=== PATIENT | female | born 1980 | race Two or more races ===

== ENCOUNTER 2024-11-26 08:01 | Emergency (ER) | payer OTHER, SELFPAY ==
[2024-11-26 08:03] VITALS: BMI 32.9
[2024-11-26 08:10] VITALS: BP 130/80; PULSE 77; RESP 18; TEMP 36.6; O2SAT 100
--- NOTE | 2024-11-26 08:18 | XR_ITS ---
Examination: PA lateral chest 2 views TECHNIQUE: Upright PA lateral chest 2 views Exam date and time: 11/18/2024 at 0837 hours INDICATIONS: Chest pain shortness of breath today FINDINGS: Normal heart size Minimal increased markings at the lung bases No pulmonary edema Intact osseous structures IMPRESSION: Suspicious for early bibasilar pneumonia, clinical correlation advised
--- NOTE | 2024-11-26 08:18 | EKG_ITS ---
[facility] Test Date: 2024-11-26 Pat Name: PARTH PETERSON Department: Room: - Gender: Female In [employer]: : 1980 Requested By: Elia Camacho (CARSON) Order Number: [id number] Reading MD: Elia Camacho ([employer]PA[employer]ER) Measurements Intervals [place] Rate: 58 P: 46 MD: 139 QRS: 61 QRSD: 78 T: 45 QT: 420 QTc: 413 Interpretive Statements SINUS BRADYCARDIA WITH SINUS ARRHYTHMIA No previous ECG available for comparison /store/S0/[id number].pdf
[2024-11-26 08:36] LABS: Basophils # (Auto) 0.1 Thou/mm3 (0.0-0.2); Basophils % (Auto) 1 % (0-2.5); Eosinophils # (Auto) 0.2 Thou/mm3 (0.0-0.5); Eosinophils % (Auto) 2 % (0-10); Hematocrit 38.5 % (36.0-46.0); Hemoglobin 12.6 g/dL (12.0-16.0); Immature Granulocytes % (Auto) 1 % (0-0); Lymphocytes # (Auto) 2.3 Thou/mm3 (1.0-4.8); Lymphocytes % (Auto) 21 % (10-50); Mean Corpuscular HGB Conc 32.7 g/dl (31.0-37.0); Mean Corpuscular Hemoglobin 29.5 pg (25.0-35.0); Mean Corpuscular Volume 90 fL (80-100); Monocytes # (Auto) 0.6 Thou/mm3 (0.0-0.8); Monocytes % (Auto) 6 % (0-12); Neutrophils # (Auto) 7.6 Thou/mm3 (1.8-7.7); Neutrophils % (Auto) 70 % (37-80); Nucleated Red Blood Cell % 0 /100 WBC (0); Platelet Count 270 Thou/mm3 (140-440); RDW Standard Deviation 43.3 fL (36.4-46.3); Red Blood Count 4.27 Miln/mm3 (4.00-5.20); White Blood Count 10.9 Thou/mm3 (3.6-11.0)
[2024-11-26 08:56] LABS: Alanine Aminotransferase 13 U/L (10-49); Albumin, Serum 4.5 gm/dL (3.5-5.0); Albumin/Globulin Ratio 1.6 (1.2-2.2); Alkaline Phosphatase 94 U/L (46-116); Anion Gap 8 (7-16); Aspartate Amino Transferase 13 U/L (0-34); BUN/Creatinine Ratio 17 Ratio (12-20); Bilirubin,Total 0.5 mg/dL (0.3-1.2); Blood Urea Nitrogen 12 mg/dL (9-23); Carbon Dioxide 24.8 mMol/L (20.0-31.0); Chloride 105 mMol/L (98-107); Creatinine (Component) 0.7 mg/dL (0.6-1.3); Estimated Creatinine Clearance 102.6 mL/min (>60); Globulin 2.8 gm/dL (2.3-3.5); Glucose 111 mg/dL (74-106); Osmolality,Calculated 276 (275-295); Potassium 3.8 mMol/L (3.4-5.1); Sodium 138 mMol/L (136-145); Total Protein 7.3 gm/dL (5.7-8.2); Troponin I < 0.020 ng/mL (0.0-0.045); eGFR > 60 See Note
[2024-11-26 09:09] LABS: HCG,Qualitative Serum Negative
--- NOTE | 2024-11-26 10:47 | PD.EDSOB ---
ED SOB =RME/HPI General Chief Complaint: Shortness of Breath/Dyspnea Stated Complaint: ASTHMA ATTACK/ LUNGS HURT/ SOB Time Seen by Provider: 11/26/24 08:50 Arrival date/time: 11/26/24 08:01 44-year-old female presents the emergency department complaints of asthma attack patient reports cough and congestion as well there are no other associated symptoms or aggravating factors no other modifying factors, patient denies taking medication before coming to ER today Limitations: no limitations Related Data Home Medications ?Medication ?Instructions ?Recorded ?Confirmed sertraline 50 mg tablet (Zoloft) 50 mg PO QDAY 11/15/23 04/24/24 norethindrone 1.5 mg-ethinyl 1 tab PO QDAY 04/24/24 04/24/24 estradiol 30 mcg(21)/iron 75 mg(7) tablet (Blisovi Fe 1.5 ()) Previous Rx's ?Medication ?Instructions ?Recorded albuterol sulfate 90 mcg/actuation 2 puff inhalation Q6H PRN 11/26/24 aerosol inhaler (Ventolin HFA) shortness of breath or wheezing #8.5 grams azithromycin 500 mg tablet See Rx Instructions PO .COMPLEX #6 11/26/24 tabs ibuprofen 600 mg tablet 600 mg PO Q6H #30 tabs 11/26/24 prednisone 10 mg tablet 30 mg (3 x 10 mg) PO BID 3 days 11/26/24 #18 tabs Allergies Allergy/AdvReac Type Severity Reaction Status Date / Time codeine Allergy Intermediate Rash Verified 11/26/24 08:01 epinephrine Allergy Intermediate Palpitation Verified 11/26/24 08:01 s Review of Systems Review of Systems Systems Reviewed: All systems reviewed, normal except as documented Constitutional Constitutional: Reports system reviewed and no additional complaints, except as documented, Denies fever(s) and Denies headache(s) Eyes Eyes: Reports system reviewed and no additional complaints, except as documented and Denies blurry vision ENT Ears, Nose, Mouth, and Throat: Reports system reviewed and no additional complaints, except as documented, Denies headache(s), Denies nasal congestion and Denies nasal discharge Cardiovascular Cardiovascular: Reports system reviewed and no additional complaints, except as documented, Denies chest pain and Reports dyspnea Respiratory Respiratory: Reports system reviewed and no additional complaints, except as documented, Reports chest congestion, Reports cough, Reports dyspnea and Reports wheezing Gastrointestinal Gastrointestinal: Reports system reviewed and no additional complaints, except as documented and Denies abdominal pain Integumentary/Breasts Skin/Breast: Reports system reviewed and no additional complaints, except as documented and Denies rash Neurologic Neurologic: Reports system reviewed and no additional complaints, except as documented, Reports as per HPI and Denies headache(s) Allergic/Immunologic Allergic/Immunologic: Reports wheezing Past Medical History Past Medical History NEUROLOGIC: Negative Neurological Disorders or Seizures CARDIAC: Negative Cardiac Disorders or Congestive Heart Failure RESPIRATORY: Positive Asthma; Negative Chronic Obstructive Pulmonary Disease (COPD) GASTROINTESTINAL: Negative Gastrointestinal Disorders GENITOURINARY: Negative Genitourinary Disorders or Renal Disease MUSCULOSKELETAL: Negative Musculoskeletal Disorders ENDOCRINE: Negative Endocrine Disorders, Diabetes Mellitus Type 1 or Diabetes Mellitus Type 2 HEMATOLOGIC: Negative Blood Disorders or Sickle Cell Disease PSYCHO/SOCIAL: Positive Anxiety OTHER HISTORY: Positive Mumps; Negative Autoimmune Disease, Blood Transfusions, Anesthesia Reactions, Chicken Pox, Measles or Cancer Social History SMOKING STATUS: Never smoker SUBSTANCE USE: does not use ED Exam General Limitations: Present no limitations General appearance: Present alert and in no apparent distress Head Head exam: Present atraumatic, normocephalic and normal inspection Eye Eye exam: Present normal appearance, PERRL and EOMI; Absent conjunctival injection ENT ENT exam: Present normal exam, normal oropharynx and mucous membranes moist Neck Neck exam: Present normal inspection, full ROM and trachea midline Chest Chest inspection: Present normal inspection and symmetric chest wall rise Respiratory Respiratory exam: Present wheezes; Absent respiratory distress, stridor, accessory muscle use or prolonged expiratory phase Cardiovascular Cardiovascular exam: Present regular rate, normal rhythm and normal heart sounds Abdominal Exam Abdominal exam: Present soft and normal bowel sounds; Absent distention, tenderness, guarding, rebound or rigidity Extremities Exam Extremities exam: Present normal inspection and full ROM Back Exam Back exam: Present normal inspection and full ROM Neurological Exam Neurological exam: Present alert, oriented X3 and CN II-XII intact Psychiatric Psychiatric exam: Present normal affect and normal mood Skin Skin exam: Present warm, dry, intact and normal color Course Quality Measures none Orders Category Date Time Status Bedside Influenza A&B Antigen Test NOW Care 11/26/24 08:20 Completed EKG (ED ONLY) *Do not use* NOW Care 11/26/24 08:18 Completed EKG (ED Only) Stat Exams 11/26/24 08:18 Draft XR chest 2V Stat Exams 11/26/24 08:18 Completed CBC Stat Lab 11/26/24 08:30 Completed Comprehensive Metabolic Panel Stat Lab 11/26/24 08:30 Completed HCG,Qualitative Serum Stat Lab 11/26/24 08:30 Completed Troponin I Stat Lab 11/26/24 08:30 Completed Vital Signs Vital signs: Vital Signs Temperature 97.9 F 11/26/24 08:10 Pulse Rate 77 11/26/24 08:10 Respiratory Rate 18 11/26/24 08:10 Blood Pressure 130/80 11/26/24 08:10 Pulse Oximetry (%) 100 11/26/24 08:10 Oxygen Delivery Method Room Air 11/26/24 08:10 O2 saturation 100% room air within normal limits Procedures -ED EKG Interpretation #1: Date of EK11/26/24 Time of EK:27 Rate: 58 Interpretation: Interpreted by me EKG Impression: No acute ST-T changes, No ectopy, Sinus arrhythmia, No ischemic changes, Normal QRS and Normal intervals Shortness of Breath / Dyspnea MDM Narrative MDM Narrative:: 44-year-old female presents the emergency department complaints of asthma attack patient reports cough and congestion as well there are no other associated symptoms or aggravating factors no other modifying factors, patient denies taking medication before coming to ER today On exam patient well-appearing patient does not appear ill or toxic in no acute distress Chest x-ray obtained consistent with pneumonia Lab work obtained no acute emergent findings noted EKG obtained no acute emergent findings noted Patient discharged home in no distress to follow-up with primary care doctor in the next 24 to 48 hours and for any worsening symptoms to return to the ER immediately Patient data External records reviewed:: [facility] previous records Clinical information provided by:: patient Social determinants that could affect healthcare access:: none Patient has the following chronic illnesses:: Asthma How is presenting disease/condition affected by chronic disease/condition?: exacerbated by Evaluation data The following diagnostics were reviewed and interpreted by me:: lab results, radiology exam(s) and EKG tracing(s) Lab and/or radiology exams considered but not ordered:: Labs, radiology, EKG obtained Interpretation Summary: Reviewed by me Medications / Prescriptions Medications or Prescriptions considered but not ordered:: Given Medication administrations:: Given Consultations Consultation(s) initiated? (list below): No Diagnosis Shortness of Breath Differential Diagnosis: acute exacerbation of chronic obstructive airways disease, congestive heart failure, community acquired pneumonia, asthma with exacerbation and pulmonary embolism Most likely diagnosis given after review of the tests above:: Asthma exacerbation, pneumonia Admission Indicated Admission indicated?: not indicated Admission Request Was there a request for admission?: No Disposition Plan Disposition Plan: Discharge Discharge Attestation Discharge Attestation: The patient and all family members were given an opportunity to ask questions and understood the discharge instructions. Discharge instructions specifically effects, indications for sooner follow up or return to the emergency department, and the expected course of current diagnosis. Patient condition: Stable Discharge Plan Plan Patient Disposition: HOME (Self Care) Disposition Comment: Stable Patient condition on transfer: Stable Prescriptions/Referrals Prescriptions/Med Rec: New prednisone 10 mg tablet 30 mg PO BID 3 Days Qty: 18 0RF ibuprofen 600 mg tablet 600 mg PO Q6H Qty: 30 0RF albuterol sulfate [Ventolin HFA] 90 mcg/actuation HFA aerosol inhaler 2 puff inhalation Q6H PRN (Reason: shortness of breath or wheezing) Qty: 8.5 0RF azithromycin 500 mg tablet See Rx Instructions .ROUTE .COMPLEX Qty: 6 0RF Rx Instructions: take 500 mg today (day 1), then 250 mg for 4 days (days 2-5) No Action sertraline [Zoloft] 50 mg tablet 50 mg PO QDAY norethindrone-e.estradiol-iron [Blisovi Fe 1.5/30 (28)] 1.5 mg-30 mcg (21)/75 mg (7) Tablet 1 tab PO QDAY Referrals: Sofie Alvarez FNP [Primary Care Provider] - 11/27/24 Problem List Clinical Impression: Pneumonia Patient/Caregiver Discharge Instructions Education Materials: ED Pneumonia (Adult) Additional Instructions: Please follow up with your primary care doctor in the next 24-48hrs for any worsening symptoms return here immediately Print Language: Syrian Stand Alone Forms: Hanna Award Info., Work/School Release, Patient Portal Info Letter RUDY/PRIYANKA Supervising Physician RUDY/PRIYANKA Supervising Physician: Dr. Huynh
== END 2024-11-26 11:57 | disposition home or self-care (01) ==
PROVIDERS: Nurse Practitioner Primary Care; Emergency Provider Emergency Medicine; PCP Registered Nurse Community Health
DX: J18.9 Pneumonia, unspecified organism (principal); I49.8 Other specified cardiac arrhythmias; R00.1 Bradycardia, unspecified
CPT/HCPCS: 36415; 71046; 80053; 84484; 84703; 85025; 87400; 93005; 99283

== ENCOUNTER → 2024-12-09 | Outpatient (CLI) | payer OTHER, SELFPAY ==
--- NOTE | 2024-12-09 09:42 | XR_ITS ---
Examination: PA lateral chest 2 views TECHNIQUE: Upright PA lateral chest 2 views Exam date and time: December 09, 2024 1007 hours COMPARISON: November 18, 2024 INDICATIONS: History pneumonia 2 weeks ago bibasilar FINDINGS: Pneumonia at the lung bases has cleared Normal heart size Moderate osteopenia IMPRESSION: Bibasilar pneumonia has cleared
--- NOTE | 2024-12-09 10:03 | XR_ITS ---
Examination: Ultrasound soft tissue neck TECHNIQUE: Grayscale sonographic images soft tissue neck Exam date and time: December 09, 2024 1037 hours INDICATIONS: Palpable lumps lower left neck note is beginning 3 weeks ago FINDINGS: 7 x 3 x 8 mm lymph node at the area concern IMPRESSION: 7 x 3 x 8 mm lymph node at the area concern, recommend 3 month follow-up
== END | disposition home or self-care (01) ==
PROVIDERS: PCP Registered Nurse Community Health; Referring Provider Registered Nurse Community Health; Visit Provider Registered Nurse Community Health
DX: J18.9 Pneumonia, unspecified organism (principal); R22.1 Localized swelling, mass and lump, neck
CPT/HCPCS: 71046; 76536

== ENCOUNTER 2024-12-10 02:43 | Emergency (ER) | payer OTHER, SELFPAY ==
[2024-12-10 02:43] VITALS: BMI 32.9
[2024-12-10 02:54] VITALS: BP 130/82; PULSE 103; RESP 19; TEMP 36.4; O2SAT 100
--- NOTE | 2024-12-10 02:58 | XR_ITS ---
Examination: PA lateral chest 2 views Technique: AP lateral chest 2 view Exam date and time: December 10, 2024 0307 hrs. Comparison December 09, 2024 Indications: Chest pain beginning one week ago. Findings: Normal heart size No pneumonia or pulmonary edema Mild osteopenia Impression: No pneumonia or pulmonary edema
--- NOTE | 2024-12-10 03:00 | PD.EDRME ---
Rapid Medical Screening Exam RME Arrival date/time: 12/10/24 02:43 44-year-old female presents emergency department complaining of shortness of breath, chest pressure, and shakiness. Chief Complaint: Shortness of Breath/Dyspnea Time Seen by Provider: 12/10/24 02:49 Vital signs: Vital Signs Temperature 97.6 F 12/10/24 02:54 Pulse Rate 103 H 12/10/24 02:54 Respiratory Rate 19 12/10/24 02:54 Blood Pressure 130/82 12/10/24 02:54 Pulse Oximetry (%) 100 12/10/24 02:54 Oxygen Delivery Method Room Air 12/10/24 02:54 Vital signs reviewed by provider: Yes
[2024-12-10 03:19] LABS: Basophils # (Auto) 0.1 Thou/mm3 (0.0-0.2); Basophils % (Auto) 0 % (0-2.5); Eosinophils # (Auto) 0.3 Thou/mm3 (0.0-0.5); Eosinophils % (Auto) 2 % (0-10); Immature Granulocytes % (Auto) 1 % (0-0); Immature Granulocytes Auto 0.14 Thou/mm3 (0.00-0.00); Lymphocytes # (Auto) 4.8 Thou/mm3 (1.0-4.8); Lymphocytes % (Auto) 29 % (10-50); Mean Corpuscular HGB Conc 33.3 g/dl (31.0-37.0); Mean Corpuscular Hemoglobin 29.6 pg (25.0-35.0); Mean Corpuscular Volume 89 fL (80-100); Monocytes % (Auto) 6 % (0-12); Neutrophils # (Auto) 10.4 Thou/mm3 (1.8-7.7); Neutrophils % (Auto) 63 % (37-80); Nucleated Red Blood Cell % 0 /100 WBC (0); Platelet Count 260 Thou/mm3 (140-440); RDW Standard Deviation 43.4 fL (36.4-46.3); Red Blood Count 4.39 Miln/mm3 (4.00-5.20); White Blood Count 16.7 Thou/mm3 (3.6-11.0)
[2024-12-10] MEDS: DIAZEPAM 5 MG TABLET PO (03:19)
[2024-12-10 03:32] LABS: B-Type Natriuretic Peptide < 20 pg/mL (0-100)
--- NOTE | 2024-12-10 03:33 | PD.EDSOB ---
ED SOB =RME/HPI General Chief Complaint: Shortness of Breath/Dyspnea Stated Complaint: DIFFICULTY BREATHING, SHAKY Time Seen by Provider: 12/10/24 02:49 Arrival date/time: 12/10/24 02:43 RME / HPI RME / HPI Narrative: 12/10/24 02:43 44-year-old female presents emergency department complaining of shortness of breath, chest pressure, and shakiness. Dr. Holder?s Main ED Evaluation: 44yo female presents to the ED for a chief complaint of shortness of breath. Patient states she was diagnosed with pneumonia last week, reporting she has since completed her 5-day course of antibiotics. Patient states she's continued to have shortness of breath, lightheadedness, dizziness, fatigue, sharp left-sided chest pain, and palpitations. She denies any weight changes, hair loss, dry skin, diarrhea or any other associated symptoms. Related Data Home Medications ?Medication ?Instructions ?Recorded ?Confirmed sertraline 50 mg tablet (Zoloft) 50 mg PO QDAY 11/15/23 04/24/24 norethindrone 1.5 mg-ethinyl 1 tab PO QDAY 04/24/24 04/24/24 estradiol 30 mcg(21)/iron 75 mg(7) tablet (Blisovi Fe 1.5/30 (28)) Previous Rx's ?Medication ?Instructions ?Recorded albuterol sulfate 90 mcg/actuation 2 puff inhalation Q6H PRN 11/26/24 aerosol inhaler (Ventolin HFA) shortness of breath or wheezing #8.5 grams azithromycin 500 mg tablet See Rx Instructions PO .COMPLEX #6 11/26/24 tabs ibuprofen 600 mg tablet 600 mg PO Q6H #30 tabs 11/26/24 meclizine 25 mg tablet 25 mg PO TID Dizziness #20 tabs 12/10/24 Allergies Allergy/AdvReac Type Severity Reaction Status Date / Time codeine Allergy Intermediate Rash Verified 11/26/24 08:01 epinephrine Allergy Intermediate Palpitation Verified 11/26/24 08:01 s Review of Systems Review of Systems Systems Reviewed: All systems reviewed, normal except as documented Past Medical History Past Medical History NEUROLOGIC: Negative Neurological Disorders or Seizures CARDIAC: Negative Cardiac Disorders or Congestive Heart Failure RESPIRATORY: Positive Asthma; Negative Chronic Obstructive Pulmonary Disease (COPD) GASTROINTESTINAL: Negative Gastrointestinal Disorders GENITOURINARY: Negative Genitourinary Disorders or Renal Disease MUSCULOSKELETAL: Negative Musculoskeletal Disorders ENDOCRINE: Negative Endocrine Disorders, Diabetes Mellitus Type 1 or Diabetes Mellitus Type 2 HEMATOLOGIC: Negative Blood Disorders or Sickle Cell Disease PSYCHO/SOCIAL: Positive Anxiety OTHER HISTORY: Positive Mumps; Negative Autoimmune Disease, Blood Transfusions, Anesthesia Reactions, Chicken Pox, Measles or Cancer Social History SMOKING STATUS: Never smoker SUBSTANCE USE: does not use ED Exam Narrative Physical exam: GENERAL APPEARANCE: alert and oriented x 4, well-developed, well-nourished, tearful, no acute distress VITALS: All vitals were reviewed and the pulse ox is 100% on room air, which is normal according to my interpretation. HEENT: Normocephalic, atraumatic; pupils equal, round, reactive to light; EOMI; fine mild left horizontal nystagmus that worsens with positional changes; mucous membranes pink, moist; oropharynx clear NECK: Supple; full thyroid, no masses, nontender LUNGS: CTABL; no wheezes, no rales, no rhonchi HEART: Regular rate, regular rhythm; normal S1, S2; no murmurs ABDOMEN: non distended; normal BS; soft, no tenderness, no guarding, no rebound; no masses, no organomegaly, no hernia BACK: no CVA tenderness EXTREMITIES: atraumatic; no edema NEUROLOGIC: awake; alert and oriented x4; cranial nerves II-XII grossly intact; no focal sensory or motor deficits PSYCHIATRIC: anxious mood and affect SKIN: warm, dry, normal color; no rashes Course Course Course Narrative: CXR is ordered for determining the etiology of shortness of breath. Quality Measures none Orders Category Date Time Status Bedside Influenza A&B Antigen Test NOW Care 12/10/24 03:[address] Screening NOW Care 12/10/24 03:58 Completed EKG (ED ONLY) *Do not use* NOW Care 12/10/24 02:[address] angio chest Stat Exams 12/10/24 03:58 Taken EKG (ED Only) Stat Exams 12/10/24 02:59 Ordered XR chest 2V Stat Exams 12/10/24 02:58 Taken BNP [B-Type Natriuretic Peptide] Stat Lab 12/10/24 03:02 Completed CBC Stat Lab 12/10/24 03:02 Completed Comprehensive Metabolic Panel Stat Lab 12/10/24 03:02 Completed Free T4 (Free Thyroxine) Stat Lab 12/10/24 03:02 Completed HCG,Qualitative Serum Stat Lab 12/10/24 03:02 Completed Mag [Magnesium] Stat Lab 12/10/24 03:02 Completed Thyroid Stimulating Hormone Stat Lab 12/10/24 03:02 Completed Troponin I Stat Lab 12/10/24 03:02 Completed Diazepam [Valium] Med 12/10/24 02:58 Discontinued 5 mg PO X1 ONE Meclizine HCl [Antivert] Med 12/10/24 03:59 Discontinued 25 mg PO X1 ONE Vital Signs Vital signs: Vital Signs Temperature 97.6 F 12/10/24 02:54 Pulse Rate 103 H 12/10/24 02:54 Respiratory Rate 19 12/10/24 02:54 Blood Pressure 130/82 12/10/24 02:54 Pulse Oximetry (%) 100 12/10/24 02:54 Oxygen Delivery Method Room Air 12/10/24 02:54 Shortness of Breath / Dyspnea MDM Narrative MDM Narrative:: Scribe Attestation: 12/10/24 Marielle Kinney am scribing for and in the presence of Dr. Holder. Patient data External records reviewed:: [facility] previous records (Per chart review, patient was seen here on 11/26/24 for pneumonia.) Clinical information provided by:: patient Social determinants that could affect healthcare access:: mental health Patient has the following chronic illnesses:: asthma, anxiety How is presenting disease/condition affected by chronic disease/condition?: exacerbated by Evaluation data The following diagnostics were reviewed and interpreted by me:: lab results and radiology exam(s) Lab and/or radiology exams considered but not ordered:: none Interpretation Summary: WBC count is elevated at 16.7, Potassium is 3.1, troponin is normal, BNP is normal, TSH is normal, Free T4 is normal, according to my interpretation. CXR shows normal cardiac silhouette, normal sharp diaphragmatic edge, no infiltrates, normal costophrenic angles, according to my interpretation. EKG done at 0252, NSR, rate of 83, normal axis, no ectopy, QTc: 410, no acute ischemia, according to my interpretation. Telerad Preliminary Report Draft Patient: PARTH PETERSON [facility]. Record#: [id number] Birthdate: 1980 Age/Sex: 44 / F Location: [facility] Attending Dr: Ordering Physician: Date of Service: Procedure(s): Accession Number(s): cc: ~ CT angiogram of the chest with intravenous contrast (axial sections with sagittal and coronal reformats) December 10, 2024 0503 hours Clinical History: dyspnea Technique:Helical axial sections with sagittal and coronal reformats of the chest were obtained with intravenous contrast. Iterative reconstruction technique was employed to reduce patient radiation exposure. 3D/MIP reconstructed images were also provided. Comparison: None. Findings: Image quality is limited by the patient body habitus and breathing motion artifact, the study is nondiagnostic for evaluation of pulmonary emboli. The mediastinum demonstrates no evidence of mass or lymphadenopathy. The thoracic aorta is unremarkable. There is no pericardial effusion. Small consolidation in the left lower lobe. No evidence of pleural effusion or pneumothorax. The osseous structures are unremarkable. S/p cholecystectomy. No biliary duct dilation. Impression: Image quality is limited by the patient body habitus and breathing motion artifact, the study is nondiagnostic for evaluation of pulmonary emboli. Consider correlation with nuclear medicine perfusion study if clinically indicated. Small consolidation in the left lower lobe suspicious for pneumonia. Report Electronically Signed By: Dean Gutierrez 12/10/2024 5:33:02 AM Medications / Prescriptions Medications or Prescriptions considered but not ordered:: none Medication administrations:: Medication Administration History Discontinued Medications Diazepam (Diazepam 5 Mg Tablet) 5 mg PO X1 ONE Stop: 12/10/24 02:59 Last Admin: 12/10/24 03:19 Dose: 5 mg Documented By: KG Meclizine HCl (Meclizine Hcl 25 Mg Tablet) 25 mg PO X1 ONE Stop: 12/10/24 04:00 Last Admin: 12/10/24 04:07 Dose: 25 mg Documented By: KG see above Consultations Consultation(s) initiated? (list below): No Diagnosis Shortness of Breath Differential Diagnosis: congestive heart failure, community acquired pneumonia, pulmonary embolism and other (Influenza, COVID, viral URI) Most likely diagnosis given after review of the tests above:: see below Admission Indicated Admission indicated?: not indicated Admission Request Was there a request for admission?: No Disposition Plan Disposition Plan: Discharge Discharge Attestation Discharge Attestation: The patient and all family members were given an opportunity to ask questions and understood the discharge instructions. Discharge instructions specifically effects, indications for sooner follow up or return to the emergency department, and the expected course of current diagnosis. Patient condition: Stable Discharge Plan Plan Patient Disposition: HOME (Self Care) Disposition Comment: Stable for discharge Patient condition on transfer: Stable Prescriptions/Referrals Prescriptions/Med Rec: New meclizine 25 mg tablet 25 mg PO TID Qty: 20 0RF No Action sertraline [Zoloft] 50 mg tablet 50 mg PO QDAY norethindrone-e.estradiol-iron [Blisovi Fe 1.5/30 (28)] 1.5 mg-30 mcg (21)/75 mg (7) Tablet 1 tab PO QDAY ibuprofen 600 mg tablet 600 mg PO Q6H Qty: 30 0RF albuterol sulfate [Ventolin HFA] 90 mcg/actuation HFA aerosol inhaler 2 puff inhalation Q6H PRN (Reason: shortness of breath or wheezing) Qty: 8.5 0RF azithromycin 500 mg tablet See Rx Instructions .ROUTE .COMPLEX Qty: 6 0RF Rx Instructions: take 500 mg today (day 1), then 250 mg for 4 days (days 2-5) Referrals: Sofie Alvarez FNP [Primary Care Provider] - In 1 week Problem List Clinical Impression: Dyspnea, Anxiety reaction, Vertigo, Heart palpitations Patient/Caregiver Discharge Instructions Discharge Activity: activity as tolerated Education Materials: Anatomy of the Inner Ear, Vertigo Medicine Tx, ED Shortness of Breath (Dyspnea), ED Palpitations Additional Instructions: You should follow-up with your primary care doctor within the next several days. Please let her know that I recommended that you be seen in follow-up by an ear nose and throat doctor to make sure that you do not have an illness called M?ni?re's disease. I have also called in a prescription at your pharmacy for a medicine called meclizine. This medicine is also called Antivert. This is for the sensation of spinning and it will make that go away. Please return to the emergency department if you have any worsening or any further medical problems Print Language: Lao Stand Alone Forms: Hanna Award Info., Patient Portal Info Letter
[2024-12-10 03:34] LABS: Alanine Aminotransferase 19 U/L (10-49); Albumin, Serum 4.2 gm/dL (3.5-5.0); Albumin/Globulin Ratio 1.4 (1.2-2.2); Alkaline Phosphatase 96 U/L (46-116); Anion Gap 11 (7-16); Aspartate Amino Transferase 17 U/L (0-34); BUN/Creatinine Ratio 16 Ratio (12-20); Bilirubin,Total 0.5 mg/dL (0.3-1.2); Blood Urea Nitrogen 13 mg/dL (9-23); Calcium 9.5 mg/dL (8.3-10.6); Calcium (Corrected) 9.5 mg/dL (8.5-10.1); Carbon Dioxide 21.1 mMol/L (20.0-31.0); Chloride 109 mMol/L (98-107); Creatinine (Component) 0.8 mg/dL (0.6-1.3); Estimated Creatinine Clearance 89.8 mL/min (>60); Glucose 130 mg/dL (74-106); Magnesium 1.9 mg/dL (1.6-2.6); Osmolality,Calculated 283 (275-295); Potassium 3.1 mMol/L (3.4-5.1); Sodium 141 mMol/L (136-145); Total Protein 7.2 gm/dL (5.7-8.2); Troponin I < 0.020 ng/mL (0.0-0.045); eGFR > 60 See Note
--- NOTE | 2024-12-10 03:35 | PC.NURSE ---
Dr. Holder at the bedside.
[2024-12-10 03:49] LABS: HCG,Qualitative Serum Negative
--- NOTE | 2024-12-10 03:58 | XR_ITS ---
Examination: CTA chest with intravenous contrast 2-D reconstructions 3-D reconstructions, vascular Date and time of exam: 2024 at 0503 hrs. Indications: Onset dyspnea chest pain today, clinical diagnosis pulmonary embolus CTDI: vol (mGy) 16.12 DLP: (mGycm) 432 Technique: Multiple axial sections of the thorax have been obtained. 3 mm slice thickness, from below the hemidiaphragms to above the apices of the lungs. Mediastinal and lung density settings have been obtained. 2-D sagittal and coronal reconstructions. 3-D angiographic renderings, 3-D volume renderings, 3D post processing, vascular maximum intensity projections obtained. Contrast administered is 100 cc [id number]. Low dose protocols were performed. One or more of the following dose reduction techniques were used; automated exposure control, adjustment of the mA and/or KV according to patient size, use of iterative reconstruction technique. Findings: Contrast opacification of the pulmonary arteries is relatively poor, most of the contrast opacification is in the thoracic aorta No gross pulmonary artery emboli No paratracheal tracheobronchial or bronchopulmonary adenopathy No thoracic aortic aneurysm dilatation or dissection Subtle opacity left base No focal liver or splenic lesion No gallstones No pancreatic or adrenal mass Impression: Contrast bolus timing error, contrast opacification of pulmonary arteries is relatively poor No gross pulmonary artery emboli No mediastinal lymphadenopathy Suspicious for mild pneumonia left base
[2024-12-10 04:07] LABS: Free T4 (Free Thyroxine) 1.37 ng/dL (0.89-1.76); Thyroid Stimulating Hormone 3.52 uIU/mL (0.55-4.78)
[2024-12-10] MEDS: MECLIZINE HCL 25 MG TABLET PO (04:07)
[2024-12-10 04:21] VITALS: BP 155/89; PULSE 63; RESP 18; TEMP 36.6; O2SAT 100
--- NOTE | 2024-12-10 05:34 | PRELIM_ITS ---
CT angiogram of the chest with intravenous contrast (axial sections with sagittal and coronal reformats) December 10, 2024 0503 hours Clinical History: dyspnea Technique:Helical axial sections with sagittal and coronal reformats of the chest were obtained with intravenous contrast. Iterative reconstruction technique was employed to reduce patient radiation exposure. 3D/MIP reconstructed images were also provided. Comparison: None. Findings: Image quality is limited by the patient body habitus and breathing motion artifact, the study is nondiagnostic for evaluation of pulmonary emboli. The mediastinum demonstrates no evidence of mass or lymphadenopathy. The thoracic aorta is unremarkable. There is no pericardial effusion. Small consolidation in the left lower lobe. No evidence of pleural effusion or pneumothorax. The osseous structures are unremarkable. S/p cholecystectomy. No biliary duct dilation. Impression: Image quality is limited by the patient body habitus and breathing motion artifact, the study is nondiagnostic for evaluation of pulmonary emboli. Consider correlation with nuclear medicine perfusion study if clinically indicated. Small consolidation in the left lower lobe suspicious for pneumonia. Report Electronically Signed By: Dean Gutierrez 12/10/2024 5:33:02 AM [EST]
[2024-12-10 06:05] VITALS: BP 143/82; PULSE 71; RESP 18; O2SAT 99
== END 2024-12-10 06:05 | disposition home or self-care (01) ==
PROVIDERS: Emergency Provider Emergency Medicine; PCP Registered Nurse Community Health
DX: F41.1 Generalized anxiety disorder (principal); R42 Dizziness and giddiness; R00.2 Palpitations; R07.89 Other chest pain; R06.00 Dyspnea, unspecified; D72.829 Elevated white blood cell count, unspecified; R94.31 Abnormal electrocardiogram [ECG] [EKG]
CPT/HCPCS: 36415; 71046; 71275; 80053; 80307; 83735; 83880; 84439; 84443; 84484; 84703; 85025; 87400; 93005; 99285; A4649; Q9967; A9270

== ENCOUNTER → 2025-01-20 | Outpatient (CLI) | payer OTHER, SELFPAY ==
--- NOTE | 2025-01-20 09:00 | XR_ITS ---
Examination: Screening digital mammography, bilateral Computer aided detection 3-D breast Tomosynthesis, bilateral Date and time of exam: January 20, 2025 at 0917 hours Compared to mammograms dating to February 14, 2015 Indication: Screening Technique: Nonmagnified MLO, CC views of the breasts to been obtained, reconstructed from 3-D Tomosynthesis images. R2 computer aided detection program utilized for evaluation of suspicious masses and/or abnormal calcifications. 3-D Tomosynthesis images obtained. Findings: The breasts are heterogeneously dense, which may obscure small masses 19 mm partially circumscribed nodule upper outer right breast 10 mm nodule upper outer left breast Impression: BI-RADS Category 0: Incomplete: Need additional imaging evaluation Recommend follow-up spot tomographic views of 19 mm partially circumscribed nodule upper outer right breast Recommend follow-up spot tomographic views of 10 mm nodule upper outer left breast Recommend bilateral breast sonography follow-up to complete the workup
== END | disposition home or self-care (01) ==
LOC: CDIM 09:12
PROVIDERS: Referring Provider Registered Nurse Community Health; Visit Provider Registered Nurse Community Health
DX: Z12.31 Encounter for screening mammogram for malignant neoplasm of breast (principal); N63.11 Unspecified lump in the right breast, upper outer quadrant; N63.21 Unspecified lump in the left breast, upper outer quadrant
CPT/HCPCS: 77063; 77067

== ENCOUNTER → 2025-04-02 | Outpatient (CLI) | payer OTHER, SELFPAY ==
--- NOTE | 2025-04-02 14:00 | XR_ITS ---
Examination: Breast ultrasound complete, bilateral Date and time of exam: April 02, 2025 1442 hours INDICATIONS: Mammogram January 20, 2025 19 mm nodule upper outer right breast 8mm nodule outer left breast Technique: Real-time grayscale ultrasonographic imaging bilateral breasts, including all 4 quadrants as well as nipple retroareolar and axillary regions. Findings: Sonographic images right breast 12:00 circumscribed nodule 8 x 6 mm 2:00 circumscribed nodule with calcifications 7 x 8 mm 7:00 cyst 7 x 11 mm 10:00 cyst 20 x 18 mm 10:00 nodule circumscribed 7 x 6 mm 11:00 nodule circumscribed 12 x 8 mm Sonographic images left breast 3:00 cyst 6 x 6 mm 3:00 nodule circumscribed 7 x 7 mm 8:00 nodule circumscribed 9 x 10 mm 9:00 cyst 7 x 5 mm 10:00 nodule circumscribed 7 x 5 mm IMPRESSION: BI-RADS Category 3: Probably benign findings One additional 6 month bilateral breast sonography follow-up is needed to document stability of multiple solid nodules described above
--- NOTE | 2025-04-02 15:00 | XR_ITS ---
Examination: Diagnostic digital mammography, bilateral Computer aided detection 3-D breast Tomosynthesis, bilateral Date and time of exam: April 02, 2025 1502 hours INDICATIONS: Mammogram January 20, 2025 19 mm nodule upper outer right breast 8mm nodule upper outer left breast Technique: Nonmagnified MLO, CC views of the breasts to been obtained, reconstructed from 3-D Tomosynthesis images. R2 computer aided detection program utilized for evaluation of suspicious masses and/or abnormal calcifications. 3-D Tomosynthesis images obtained. Findings: The breasts are heterogeneously dense, which may obscure small masses Circumscribed nodule 11:00 position right breast No suspicious nodule left breast depicted on the spot compression views Impression: BI-RADS Category 3: Probably benign findings One additional 6 month right mammogram follow-up needed to document stability of circumscribed nodule 11:00 position right breast Please see the bilateral breast sonography report today recommending 6 month continued bilateral breast sonography follow-up.
== END | disposition home or self-care (01) ==
PROVIDERS: PCP Registered Nurse Community Health; Referring Provider Registered Nurse Community Health; Visit Provider Registered Nurse Community Health
DX: R92.333 Mammographic heterogeneous density, bilateral breasts (principal); N63.11 Unspecified lump in the right breast, upper outer quadrant; N63.22 Unspecified lump in the left breast, upper inner quadrant; N63.25 Unspecified lump in the left breast, overlapping quadrants; N63.15 Unspecified lump in the right breast, overlapping quadrants; N63.12 Unspecified lump in the right breast, upper inner quadrant
CPT/HCPCS: 76641; 77062; 77066; G0279

== ENCOUNTER → 2025-10-17 | Outpatient (CLI) | payer OTHER, SELFPAY ==
--- NOTE | 2025-10-17 08:37 | XR_ITS ---
EXAMINATION: Abdominal series 3 views including upright PA chest TECHNIQUE: Upright PA chest AP upright AP supine abdomen 3 views Date and time: October 17, 2025, 0915 hours INDICATIONS: Chronic constipation 2 months. FINDINGS: Normal heart size Lungs are clear. Thoracic dextroscoliosis 21 degrees lumbar levoscoliosis 15 degrees Surgical clips upper right abdomen Minimal small bowel ileus Mild to moderate stool throughout the colon IMPRESSION: Mild to moderate stool throughout the colon, no obstruction
== END | disposition home or self-care (01) ==
LOC: CDIM 08:27
PROVIDERS: PCP Family Medicine; Referring Provider Student in an Organized Health Care Education/Training Program; Visit Provider Student in an Organized Health Care Education/Training Program
DX: K59.09 Other constipation (principal)
CPT/HCPCS: 74022